=== PATIENT | female | born 1980 | race Caucasian/White ===

== ENCOUNTER 2016-07-16 02:20 | Outpatient (CLI) | payer OTHER ==
[2016-07-16 02:42] LABS: Appearance,Urine Cloudy (Clear); Bacteria,Urine Rare /hpf; Bilirubin,Urine Negative (Negative); Glucose,Urine (UA) 1+ (Negative); Ketones,Urine Negative (Negative); Leukocyte Esterase,Urine Small (Negative); Mucus,Urine Rare /hpf; Nitrite,Urine Negative (Negative); Particle Count 5901; Protein,Urine Trace (Negative); RBC,Urine 3 /hpf (0-5); Specific Gravity,Urine 1.018 (1.001-1.035); Squamous Epithelial Cell,Urine 9 /hpf (0-4); UA Billing (MACRO vs. MICRO) MICRO; Urobilinogen,Urine <2.0 mg/dL (<2.0); WBC,Urine 4 /hpf (0-5)
== END 2016-07-16 03:00 | disposition home or self-care (01) ==
LOC: FBPOP 02:20
PROVIDERS: ATTEND Obstetrics & Gynecology
DX: O99.89 Other specified diseases and conditions complicating pregnancy, childbirth and the puerperium (principal); R10.12 Left upper quadrant pain; G90.1 Familial dysautonomia [Riley-Day]; Z3A.28 28 weeks gestation of pregnancy
CPT/HCPCS: 59025; 81001; 99213

== ENCOUNTER 2016-08-19 20:15 | Outpatient (CLI) | payer OTHER ==
[2016-08-19] MEDS ORDERED: NA PHOS,M-B/NA PHOS,DI-BA 133 ML ENEMA RECTAL STA (21:20)
== END 2016-08-19 23:00 | disposition home or self-care (01) ==
LOC: FBPOP 20:15
PROVIDERS: ATTEND Obstetrics & Gynecology
DX: O99.89 Other specified diseases and conditions complicating pregnancy, childbirth and the puerperium (principal); K59.00 Constipation, unspecified; R10.9 Unspecified abdominal pain; Z3A.31 31 weeks gestation of pregnancy
CPT/HCPCS: 59025; 84112; 99213

== ENCOUNTER 2016-10-07 11:37 | Inpatient (IN) | payer OTHER ==
[2016-10-14] MEDS ORDERED: DINOPROSTONE 10 MG INSERT.ER VAGINAL ONE (19:31)
[2016-10-14] MEDS ORDERED: LACTATED RINGERS 1,000 ML IV SCH (19:45)
[2016-10-14 19:47] VITALS: BMI 37.2
[2016-10-14] MEDS ORDERED: BUTORPHANOL 1 MG/ML 1 ML VIAL IV PRN (20:23)
--- NOTE | 2016-10-14 20:31 | P.HPOB ---
History of Present Illness H&P Date: 10/14/16 Chief Complaint: 41-0/7, Cervidil induction The patient is a 36-year-old 2 para 0010 admitted at 41-0/7 weeks as established by a 5 week ultrasound. She is admitted for induction of labor secondary to post dates with an unfavorable cervix. As result, we discussed cervical ripening with subsequent induction. She does carry the diagnosis of advanced maternal age and underwent serum chromosomal testing which was negative. She also carries a diagnosis of dysautonomia and underwent maternal medicine consultation as well as anesthesia consultation. Maternal medicine suggested early epidural with careful management of blood pressures and to allow the patient to labor down but still to continue to seek normal vaginal delivery. Anesthesia is aware of her condition and reportedly has a plan in place. On admission, all signs are reassuring. Group B strep status is negative. Obstetrical history: 2 para 0010 with one early miscarriage not requiring D&C. Current statistics are listed above. EDC of 2016 was established by a 5 week ultrasound. Laboratory workup demonstrates a blood type of AB+ with a negative antibody screen. Rubella status is immune. All other laboratory workup was within normal limits. chromosomal testing was negative. Cystic fibrosis screening was negative. Second trimester Glucola was within normal limits and group B strep status is negative. Gynecologic history: Is unremarkable though the patient is serial positive for herpes simplex with no reported outbreaks historically. There are no signs or symptoms of outbreak at this time. Review of Systems Review of systems is confined to history of present illness. Past Medical History Past Medical History: Blood Disorder Additional Past Medical History / Comment(s): dysautomonia. clotting disorder History of Any Multi-Drug Resistant Organisms: None Reported Past Surgical History: Adenoidectomy, Cholecystectomy Additional Past Surgical History / Comment(s): plastic surgery for excess skin removal. D&C. [place] teeth Additional Past Anesthesia/Blood Transfusion Reaction / Comment(s): Difficult time stablizing blood pressure after anesthesia and extreme nausea. Past Psychological History: Anxiety Smoking Status: Never smoker Past Alcohol Use History: None Reported Past Drug Use History: None Reported - Past Family History Mother Family Medical History: Blood Disorder Additional Family Medical History / Comment(s): Mother has clotting problems. Pt states mother has to be on blood thinners. Medications and Allergies Home Medications Medication Instructions Recorded Confirmed Type Ani-Wiqn-Ynzsa Acid 1 tab PO DAILY 07/16/16 10/14/16 History [-U Capsule (formulary)] Allergies Allergy/AdvReac Type Severity Reaction Status Date / Time cefaclor [From [facility]] Allergy Anaphylaxis Verified 10/14/16 19:23 Penicillins Allergy Anaphylaxis Verified 10/14/16 19:23 sulfamethoxazole Allergy Anaphylaxis Verified 10/14/16 19:23 [From Septra] trimethoprim [From Septra] Allergy Anaphylaxis Verified 10/14/16 19:23 Exam - Vital Signs Vital signs: Vital Signs Temp Pulse Resp BP Pulse Ox 10/14/16 19:34 97.3 F L 81 17 135/80 96 Intake and Output 10/14/16 10/14/16 10/14/16 06:59 14:59 22:59 Other: Weight 111.13 kg Patient Weight 10/15/16 06:59 Weight 111.13 kg In general, this is a well-developed, mildly obese white female in no acute distress. Her heart has a regular rhythm and rate without murmur. Her lungs are clear to auscultation bilaterally in all rodriguez. Her abdomen is nondistended, has normal active bowel sounds, is soft, nontender, and without any palpable masses aside from uterine fundus. She does have abdominal scarring from previous abdominoplasty. Her extremities are without any cyanosis , clubbing, or significant edema and are nontender to palpation bilaterally. Digital cervical examination at this time demonstrates her cervix to be fingertip dilated, 80% effaced, the vertex in presentation at -2 station. Cervidil is placed in the posterior fornix per protocol. Assessment and Plan (1) Dysautonomia Status: Acute (2) Post-dates Status: Acute Plan: The patient has been admitted for cervical ripening with Cervidil. We have had multiple discussions regarding potential outcomes and our intention is to place an epidural early in the process when pain begins. Should labor ensue, she will undergo artificial rupture of membranes at the earliest convenient time. Close maternal and surveillance will continue to be practiced along with careful monitoring of her blood pressures. Anesthesia has been notified of the patient's arrival on the floor and will interview the patient shortly. We will continue with expectant management at this time.
[2016-10-14 21:05] LABS: Basophils % (A) 0 %; CH 29.7; CHCM 33.4; Eosinophils # (A) 0.1 k/uL (0-0.7); Eosinophils % (A) 1 %; HCT 37.7 % (34.0-46.0); HDW 2.72; Luc # (Auto) 0.16; Luc % (Auto) 1; Lymphocytes # (A) 1.6 k/uL (1.0-4.8); Lymphocytes % (A) 14 %; MCH 30.7 pg (25.0-35.0); MCHC 34.4 g/dL (31.0-37.0); MCV 89.4 fL (80.0-100.0); Mean Platelet Volume 7.8; Monocytes # (A) 0.4 k/uL (0-1.0); Monocytes % (A) 4 %; Neutrophils # (A) 9.4 k/uL (1.3-7.7); Neutrophils % (A) 80 %; RBC 4.22 m/uL (3.80-5.40); RDW 14.5 % (11.5-15.5); WBC 11.8 k/uL (3.8-10.6); WBC (Perox) 12.17
[2016-10-14 21:48] LABS: INR 0.9 (<1.1); Prothrombin Time 9.3 sec (9.0-12.0)
--- NOTE | 2016-10-14 21:49 | P.CON ---
Consult Note - . Assessment/Plan:: This is a 36-year-old lady 2 para 0010, 41-1/2 weeks' ( postdated) admitted for induction of labor. Her medical list history is noted for a blood disorder- clotting disorder which she cannot give any further details of. She also has autonomic dysfunction disorder. The anesthesia was consulted for the early institution of epidural analgesia and peripartum pain management. The options for the pain management were discussed in detail with the patient. We will do the clotting and coagulation workup. If everything is normal, whenever she needs we will do a continuous lumbar epidural analgesia for labor management. The chances of having an exaggerated autonomic side effects due to epidural infusion were discussed. She might have hypotension, dizziness or nausea. We will be prepared to treat any of the side effects. For any reason if it is deemed necessary, we might have to stop the epidural infusion. The risk of having an epidural and its associated exaggerated autonomic side effects versus the benefit of having a good pain relief (as pain itself triggers her dysautonomia) were discussed. Other risks inherent with epidural placement like itching, headache and remote chance of nerve damage were discussed. She agrees to go ahead with the epidural analgesia.
[2016-10-14 22:10] LABS: Partial Thromboplastin Time 21.1 sec (22.0-30.0)
[2016-10-15] MEDS ORDERED: METHYLERGONOVINE 0.2 MG/ML 1 ML AMP IM PRN (10:32)
[2016-10-15] MEDS ORDERED: TERBUTALINE 1 MG/ML VIAL SQ PRN (10:32)
[2016-10-15] MEDS ORDERED: CARBOPROST TROMETHAMINE 250 MCG/ML 1 ML AMP IM PRN (10:32)
[2016-10-15] MEDS ORDERED: OXYTOCIN 10 UNIT/ML 1 ML VIAL IM PRN (10:32)
[2016-10-15] MEDS ORDERED: LIDOCAINE 1% (PF) 10 MG/ML (30 ML SDV) SQ PRN (10:32)
[2016-10-15] MEDS: LACTATED RINGERS 1,000 ML IV SCH ×2 (10:44→11:18)
[2016-10-15] MEDS ORDERED: OXYTOCIN 30 UNITS/500 ML NS 30 UNIT in SALINE 1 500ML.BAG IV SCH (10:45)
[2016-10-15] MEDS ORDERED: BUPIVACAINE (PF) 0.25% 25 ML, fentaNYL (PF) 200 MCG in SODIUM CHLORIDE 0.9% 71 ML EPIDURAL ONE (11:09)
[2016-10-15] MEDS ORDERED: BUPIVACAINE (PF) 0.25% 30 ML VIAL ONE (11:10)
[2016-10-15] MEDS ORDERED: fentaNYL (PF) 50 MCG/ML 5 ML AMP ONE (11:10)
[2016-10-15] MEDS ORDERED: SODIUM CHLORIDE 0.9% 100 ML BAG ONE (11:10)
[2016-10-15] MEDS ORDERED: SIMETHICONE 80 MG CHEWABLE PO PRN (18:07)
[2016-10-15] MEDS ORDERED: diphenhydrAMINE 50 MG/ML 1 ML VIAL IVP PRN ×2 (18:07)
[2016-10-15] MEDS ORDERED: diphenhydrAMINE 50 MG CAP PO PRN (18:07)
[2016-10-15] MEDS ORDERED: ACETAMINOPHEN TAB 325 MG TAB PO PRN (18:07)
[2016-10-15] MEDS ORDERED: WITCH HAZEL 1 EACH MED..PAD TOPICAL PRN (18:07)
[2016-10-15] MEDS ORDERED: diphenhydrAMINE 25 MG CAP PO PRN (18:07)
[2016-10-15] MEDS ORDERED: LANOLIN CREAM 5 GM TUBE TOPICAL PRN (18:07)
[2016-10-15] MEDS ORDERED: ZOLPIDEM 5 MG TAB PO PRN (18:07)
[2016-10-15] MEDS ORDERED: HYDROCORTISONE 2.5% RECTAL CREAM 30 GM TUBE RECTAL PRN (18:07)
[2016-10-15] MEDS ORDERED: BENZOCAINE/MENTHOL SPRAY 1 GM/SPRAY AEROSOL TOPICAL PRN (18:07)
[2016-10-15] MEDS ORDERED: Acetaminophen-Codeine 300-30mg TAB PO PRN ×2 (18:07)
--- NOTE | 2016-10-15 18:14 | P.PROBDLV ---
Vaginal Delivery Note - . Vaginal Delivery Note: The patient is a 36-year-old 2 para 0010 admitted at 41-0/7 weeks by good dating parameters. She is admitted with an unfavorable cervix for postdates induction of labor. Her last evening, she had Cervidil placed in the posterior fornix per protocol at which time her cervix was fingertip, 80%, with the vertex in presentation at -2 station. All signs were reassuring. Her had been essentially uncomplicated though she carries a diagnosis of dysautonomia and underwent both maternal medicine consultation as well as anesthesia consultation in advance of labor. Overnight she made cervical change and was found to be 1+ centimeters dilated, 80% effaced, the vertex in presentation at -2 station this morning at which time artificial rupture of membranes was carried out entered and clear fluid. She made progress through the latent phase of labor and had an epidural catheter placed for analgesia which relieved some but not all of her discomfort. Once she entered the active phase of labor, she made rapid progress to complete and 0 station. She pushed over the course of approximately 10-15 minutes to a normal spontaneous vaginal delivery of a viable 7 lbs. 8 oz. baby boy with Apgars of 8 at 1 minute and 9 at 5 minutes delivered in the right occiput anterior position. She had requested cord blood collection was was carried out under aseptic conditions per the instructions included in the packaging. Once all cord blood had been collected the kit was closed and set aside per the instructions. The placenta was delivered spontaneously, intact, and grossly normal although there was a possible infarct in the central portion of the placenta. There was a grossly normal three-vessel cord inserted approximate 2 cm from the margin of the placental disc. Examination of the perineum demonstrated a complete third- degree laceration with no entry into the rectum or at the anal verge. The margins/capsule of the external anal sphincter were identified and closed on 4 sides with a [id number] stitch of 2-0 Vicryl in standard fashion. The remainder of the second-degree laceration was closed in standard fashion using 3 -0 chromic catgut without difficulty. All this was carried out under 1% lidocaine local block. Following closure, a finger was placed in the rectum and demonstrated no stitches through the rectal mucosa and that the external anal sphincter was felt to be rebuilt entirely. Estimated blood loss for the case was approximately 250 mL. The only complication was the third-degree laceration. All sponge, instrument, and needle counts were correct. Both mother and infant are resting comfortably in recovery.
[2016-10-15] MEDS: IBUPROFEN 600 MG TAB PO PRN (19:08)
[2016-10-16] MEDS: IBUPROFEN 600 MG TAB PO PRN ×3 (04:30→22:15)
[2016-10-16] MEDS: SENNOSIDES-DOCUSATE SODIUM 1 EACH TAB PO SCH ×2 (08:12→22:16)
--- NOTE | 2016-10-16 08:59 | P.DS ---
Providers Date of admission: 10/14/16 19:03 Expected date of discharge: 10/16/16 Attending physician: Dylan Meza Primary care physician: Mazin Lerma - Discharge Diagnosis(es) (1) Dysautonomia Current Visit: Yes Status: Acute (2) Post-dates Current Visit: Yes Status: Acute (3) Normal spontaneous vaginal delivery Current Visit: Yes Status: Acute Hospital Course: The patient is a 36-year-old 2 para 0010 admitted at 41-0/7 weeks for Cervidil cervical ripening followed by induction. She carries a diagnosis of dysautonomia and had a anesthesia consult as well as maternal medicine consultation and advance of labor. Her was essentially otherwise uncomplicated. She did fall into the category of advanced maternal age and had chromosomal screening which was negative. On labor and delivery, she had Cervidil placed and made cervical change overnight allowing artificial rupture of membranes early in the morning. She had an epidural catheter placed during the latent phase of labor and progressed relatively slowly but steadily through the latent phase. She made very rapid progress to the active phase of labor to complete and then pushed to a normal spontaneous vaginal delivery of a viable 7 lbs. 8 oz. baby boy with Apgars of 8 at 1 minute and 9 at 5 minutes. She was found with a third-degree laceration following delivery which was repaired in standard fashion. There were no concerns with her blood pressures during the labor course or otherwise. She was deemed stable for discharge by post day #1 and was discharged home to follow-up in the office in 6 weeks' time routinely. Discharge instructions included calling for any significantly increased bleeding or foul-smelling lochia, significantly increased fever or abdominal pain, perineal complaints, breast complaints, or anything else that concerned her. She is additionally instructed to have nothing in the vagina for at least 6 weeks time to include intercourse and to abstain from any heavy lifting over the same period of time. She understood her instructions and agrees to follow up as noted above. Discharge medications included a prescription for Tylenol No. 3, 1-2 by mouth every 6 hours when necessary pain, #20 dispensed with no refills. She additionally was to continued use vitamins as she has opted to breast-feed. Additionally she will use over-the- counter analgesic pain medications as needed. Maternal blood type is AB+ and rubella status is immune. She was lastly also instructed to use stool softeners to stay as regular as possible given her third-degree laceration. Procedures: #1. Cervidil cervical ripening #2. Pitocin augmentation #3. Epidural analgesia #4. Artificial rupture of membranes #5. Normal spontaneous vaginal delivery #6. Repair of third-degree perineal laceration Patient Condition at Discharge: Good Plan - Discharge Summary Discharge Medication List Ydo-Evsi-Kwvih Acid [-U Capsule (formulary)] 1 tab PO DAILY 04/22 [History] Follow up Appointment(s)/Referral(s): Dylan Meza MD [STAFF PHYSICIAN] - 6 Weeks Discharge Disposition: HOME SELF-CARE
[2016-10-17] MEDS: IBUPROFEN 600 MG TAB PO PRN (06:33)
[2016-10-17] MEDS: SENNOSIDES-DOCUSATE SODIUM 1 EACH TAB PO SCH (08:25)
[2016-10-17 08:47] VITALS: BP 124/80; PULSE 80; RESP 20; TEMP 98.4
== END 2016-10-17 12:15 | disposition home or self-care (01) | DRG 775 ==
LOC: 4FBP 10-14 19:03
PROVIDERS: ADMIT Obstetrics & Gynecology; ATTEND Obstetrics & Gynecology
PROC: 3E0R3CZ (ICD-10-PCS; principal; 2016-10-14)
PROC: 3E0P7GC Introduction of Other Therapeutic Substance into Female Reproductive, Via Natural or Artificial Opening (ICD-10-PCS; principal; 2016-10-14)
PROC: 00HU33Z Insertion of Infusion Device into Spinal Canal, Percutaneous Approach (ICD-10-PCS; principal; 2016-10-14)
PROC: 3E033VJ Introduction of Other Hormone into Peripheral Vein, Percutaneous Approach (ICD-10-PCS; principal; 2016-10-14)
PROC: 10907ZC Drainage of Amniotic Fluid, Therapeutic from Products of Conception, Via Natural or Artificial Opening (ICD-10-PCS; principal; 2016-10-14)
PROC: 10E0XZZ Delivery of Products of Conception, External Approach (ICD-10-PCS; 2016-10-15)
PROC: 0DQR0ZZ Repair Anal Sphincter, Open Approach (ICD-10-PCS; 2016-10-15)
DX: O48.0 Post-term pregnancy (principal); O99.354 Diseases of the nervous system complicating childbirth; O70.20 Third degree perineal laceration during delivery, unspecified; Z37.0 Single live birth; O09.523 Supervision of elderly multigravida, third trimester; G90.1 Familial dysautonomia [Riley-Day]; Z3A.41 41 weeks gestation of pregnancy
CPT/HCPCS: 85025; 85610; 85730; 88307

== ENCOUNTER 2017-04-28 20:25 | Emergency (ER) | payer OTHER ==
--- NOTE | 2017-04-28 21:17 | ED ---
General Adult HPI - General Chief complaint: Chest Pain Stated complaint: Chest Pain Time Seen by Provider: 04/28/17 20:43 Source: patient, RN notes reviewed Mode of arrival: wheelchair Limitations: no limitations - History of Present Illness Initial comments: 36-year-old female presents for evaluation of right sided chest pain. Patient' s pain is dull in nature, began approximately one hour prior to arrival. Patient states she does have pain in her right shoulder. Denies any injury. Denies fever or cough. Denies any left-sided or central chest pain or pressure. No cardiac history. No gallop, no nausea vomiting. Patient has had her gallbladder removed. Pain is improving without treatment. - Related Data Home Medications Medication Instructions Recorded Confirmed Juleber 1 tab PO DAILY 04/28/17 04/28/17 Allergies Allergy/AdvReac Type Severity Reaction Status Date / Time cefaclor [From Ceclor] Allergy Anaphylaxis Verified 04/28/17 21:37 Penicillins Allergy Anaphylaxis Verified 04/28/17 21:37 sulfamethoxazole Allergy Anaphylaxis Verified 04/28/17 21:37 [From Septra] trimethoprim [From Septra] Allergy Anaphylaxis Verified 04/28/17 21:37 Review of Systems ROS Statement: Those systems with pertinent positive or pertinent negative responses have been documented in the HPI. ROS Other: All systems not noted in ROS Statement are negative. Past Medical History Past Medical History: Blood Disorder Additional Past Medical History / Comment(s): dysautomonia. clotting disorder. History of Any Multi-Drug Resistant Organisms: None Reported Past Surgical History: Adenoidectomy, Cholecystectomy Additional Past Surgical History / Comment(s): plastic surgery for excess skin removal. D&C. [place] teeth Additional Past Anesthesia/Blood Transfusion Reaction / Comment(s): Difficult time stablizing blood pressure after anesthesia and extreme nausea. Past Psychological History: Anxiety Smoking Status: Never smoker Past Alcohol Use History: None Reported Past Drug Use History: None Reported - Past Family History Mother Family Medical History: Blood Disorder Additional Family Medical History / Comment(s): Mother has clotting problems. Pt states mother has to be on blood thinners. General Exam Limitations: no limitations General appearance: alert, in no apparent distress Head exam: Present: atraumatic, normocephalic Eye exam: Present: normal appearance, PERRL ENT exam: Present: normal exam Neck exam: Present: normal inspection. Absent: tenderness, meningismus Respiratory exam: Present: normal lung sounds bilaterally. Absent: respiratory distress, wheezes Cardiovascular Exam: Present: regular rate, normal rhythm GI/Abdominal exam: Present: soft. Absent: distended, tenderness Extremities exam: Present: normal inspection, normal capillary refill. Absent: pedal edema, calf tenderness Neurological exam: Present: alert, oriented X3. Absent: motor sensory deficit Psychiatric exam: Present: normal affect, normal mood Skin exam: Present: warm, dry, intact. Absent: cyanosis, diaphoretic Course Vital Signs 04/28/17 04/28/17 04/28/17 20:29 21:24 23:12 Temperature 99.3 F Pulse Rate 79 67 79 Respiratory 16 18 16 Rate Blood Pressure 136/80 134/90 126/74 O2 Sat by Pulse 99 98 96 Oximetry EKG Findings - EKG Comments: EKG Findings:: EKG shows normal sinus rhythm, ventricular rate 70, LA interval 170, QRS duration 82, QTC 442, no ST segment elevation or depression, no T-wave abnormality Medical Decision Making - Medical Decision Making 36-year-old with right-sided superior chest pain. Laboratory studies are unremarkable with the exception of elevated d-dimer. CT angiography is obtained. This is negative for PE. Chest x-ray review shows no focal infiltrate, no pneumothorax. Patient's vital signs are stable. Her pain is improving without treatment. She will follow-up with her primary care physician. - Lab Data Result diagrams: 04/28/17 21:06 04/28/17 21:06 Lab Results 04/28/17 04/28/17 04/28/17 Range/Units 21:06 21:06 21:06 WBC 7.5 (3.8-10.6) k/uL RBC 4.81 (3.80-5.40) m/uL Hgb 14.1 (11.4-16.0) gm/dL Hct 43.8 (34.0-46.0) % MCV 91.0 (80.0-100.0) fL MCH 29.3 (25.0-35.0) pg MCHC 32.2 (31.0-37.0) g/dL RDW 15.2 (11.5-15.5) % Plt Count 279 (150-450) k/uL Neutrophils % 58 % Lymphocytes % 31 % Monocytes % 6 % Eosinophils % 3 % Basophils % 1 % Neutrophils # 4.3 (1.3-7.7) k/uL Lymphocytes # 2.4 (1.0-4.8) k/uL Monocytes # 0.4 (0-1.0) k/uL Eosinophils # 0.2 (0-0.7) k/uL Basophils # 0.1 (0-0.2) k/uL PT (9.0-12.0) sec INR (<1.2) APTT (22.0-30.0) sec D-Dimer (<0.60) mg/L FEU Sodium 139 (137-145) mmol/L Potassium 4.3 (3.5-5.1) mmol/L Chloride 105 (98-107) mmol/L Carbon Dioxide 24 (22-30) mmol/L Anion Gap 10 mmol/L BUN 13 (7-17) mg/dL Creatinine 0.70 (0.52-1.04) mg/dL Est GFR (MDRD) Af Amer >60 (>60 ml/min/1.73 sqM) Est GFR (MDRD) Non-Af >60 (>60 ml/min/1.73 sqM) Glucose 76 (74-99) mg/dL Calcium 9.7 (8.4-10.2) mg/dL Magnesium 2.2 (1.6-2.3) mg/dL Total Bilirubin 0.3 (0.2-1.3) mg/dL AST 22 (14-36) U/L ALT 27 (9-52) U/L Alkaline Phosphatase 74 (38-126) U/L Total Creatine Kinase 61 (30-135) U/L CK-MB (CK-2) 0.4 (0.0-2.4) ng/mL CK-MB (CK-2) Rel Index 0.7 Troponin I <0.012 (0.000-0.034) ng/mL Total Protein 7.6 (6.3-8.2) g/dL Albumin 4.4 (3.5-5.0) g/dL Lipase (23-300) U/L 04/28/17 04/28/17 04/28/17 Range/Units 21:06 21:06 21:06 WBC (3.8-10.6) k/uL RBC (3.80-5.40) m/uL Hgb (11.4-16.0) gm/dL Hct (34.0-46.0) % MCV (80.0-100.0) fL MCH (25.0-35.0) pg MCHC (31.0-37.0) g/dL RDW (11.5-15.5) % Plt Count (150-450) k/uL Neutrophils % % Lymphocytes % % Monocytes % % Eosinophils % % Basophils % % Neutrophils # (1.3-7.7) k/uL Lymphocytes # (1.0-4.8) k/uL Monocytes # (0-1.0) k/uL Eosinophils # (0-0.7) k/uL Basophils # (0-0.2) k/uL PT 9.6 (9.0-12.0) sec INR 0.9 (<1.2) APTT 22.1 (22.0-30.0) sec D-Dimer 0.88 H (<0.60) mg/L FEU Sodium (137-145) mmol/L Potassium (3.5-5.1) mmol/L Chloride (98-107) mmol/L Carbon Dioxide (22-30) mmol/L Anion Gap mmol/L BUN (7-17) mg/dL Creatinine (0.52-1.04) mg/dL Est GFR (MDRD) Af Amer (>60 ml/min/1.73 sqM) Est GFR (MDRD) Non-Af (>60 ml/min/1.73 sqM) Glucose (74-99) mg/dL Calcium (8.4-10.2) mg/dL Magnesium (1.6-2.3) mg/dL Total Bilirubin (0.2-1.3) mg/dL AST (14-36) U/L ALT (9-52) U/L Alkaline Phosphatase (38-126) U/L Total Creatine Kinase (30-135) U/L CK-MB (CK-2) (0.0-2.4) ng/mL CK-MB (CK-2) Rel Index Troponin I (0.000-0.034) ng/mL Total Protein (6.3-8.2) g/dL Albumin (3.5-5.0) g/dL Lipase 207 (23-300) U/L Disposition Clinical Impression: Chest pain Disposition: HOME SELF-CARE Condition: Good Instructions: Chest Pain (ED) Referrals: Mazin Lerma DO [Primary Care Provider] - 1-2 days Time of Disposition: 00:08
[2017-04-28 21:23] LABS: Basophils # (A) 0.1 k/uL (0-0.2); Basophils % (A) 1 %; CH 30.6; CHCM 33.8; Eosinophils # (A) 0.2 k/uL (0-0.7); Eosinophils % (A) 3 %; HCT 43.8 % (34.0-46.0); HDW 2.41; HGB 14.1 gm/dL (11.4-16.0); Luc # (Auto) 0.12; Luc % (Auto) 2; Lymphocytes # (A) 2.4 k/uL (1.0-4.8); Lymphocytes % (A) 31 %; MCH 29.3 pg (25.0-35.0); MCHC 32.2 g/dL (31.0-37.0); Mean Platelet Volume 7.6; Monocytes # (A) 0.4 k/uL (0-1.0); Monocytes % (A) 6 %; Neutrophils # (A) 4.3 k/uL (1.3-7.7); Neutrophils % (A) 58 %; RBC 4.81 m/uL (3.80-5.40); RDW 15.2 % (11.5-15.5); WBC 7.5 k/uL (3.8-10.6); WBC (Perox) 7.61
[2017-04-28 21:43] LABS: ALT 27 U/L (9-52); AST 22 U/L (14-36); Alkaline Phosphatase 74 U/L (38-126); Anion Gap 10 mmol/L; Blood Urea Nitrogen 13 mg/dL (7-17); Calcium 9.7 mg/dL (8.4-10.2); Carbon Dioxide 24 mmol/L (22-30); Chloride 105 mmol/L (98-107); Glucose 76 mg/dL (74-99); Magnesium 2.2 mg/dL (1.6-2.3); Non-African American GFR(MDRD) >60 (>60 ml/min/1.73 sqM); Potassium 4.3 mmol/L (3.5-5.1); Sodium 139 mmol/L (137-145); Total Bilirubin 0.3 mg/dL (0.2-1.3); Total Protein 7.6 g/dL (6.3-8.2)
[2017-04-28 21:47] LABS: INR 0.9 (<1.2); Partial Thromboplastin Time 22.1 sec (22.0-30.0); Prothrombin Time 9.6 sec (9.0-12.0)
--- NOTE | 2017-04-28 21:53 | XR ---
EXAMINATION TYPE: XR chest 2V DATE OF EXAM: 04/28/2017 COMPARISON: 04/16/2015 HISTORY: Chest pain TECHNIQUE: Frontal and lateral views of the chest are obtained. FINDINGS: Heart and mediastinum are normal. Lungs are clear. Diaphragm is normal. Bony thorax is int act. IMPRESSION: Normal chest. No change.
[2017-04-28 21:58] LABS: Creatine Kinase 61 U/L (30-135)
[2017-04-28 22:11] LABS: Creatine Kinase MB 0.4 ng/mL (0.0-2.4); Troponin I <0.012 ng/mL (0.000-0.034)
[2017-04-28] MEDS ORDERED: RX INFO: IV CONTRAST WAS GIVEN 1 EACH MISC MISCELLANE PRN (22:49)
[2017-04-28 23:13] VITALS: RESP 16
--- NOTE | 2017-04-28 23:57 | CT ---
EXAMINATION TYPE: CT angio chest DATE OF EXAM: 04/28/2017 11:44 PM COMPARISON: NONE HISTORY: No prior, chest pain, hx dysautonomia, elevated d-dimer, R/O PE, not CT DLP: DLP 572.30 mGycm Automated exposure control for dose reduction was used. CONTRAST: CTA scan of the thorax is performed with IV Contrast, patient injected with 83ml mL of Omnipaque 350, pulmonary embolism protocol. There are 3-D post processed images.. FINDINGS: The lungs are clear of infiltrate. There is no evidence of a pulmonary mass. Thoracic aorta appears normal. There is no sign of aneurysm or dissection. There is no mediastinal ad enopathy. There are no hilar masses. I see no filling defects in the pulmonary arteries. There is no pleural effusion. The bony thorax appears intact. IMPRESSION: NORMAL CT ANGIOGRAM OF THE CHEST. NO EVIDENCE OF PULMONARY EMBOLISM.
[2017-04-29 00:18] VITALS: BP 135/79; PULSE 75; TEMP 98.7
== END 2017-04-29 00:25 | disposition home or self-care (01) ==
LOC: EC 20:25
DX: R07.9 Chest pain, unspecified (principal); M25.511 Pain in right shoulder; Z79.3 Long term (current) use of hormonal contraceptives; Z88.0 Allergy status to penicillin; Z88.1 Allergy status to other antibiotic agents; Z88.8 Allergy status to other drugs, medicaments and biological substances
CPT/HCPCS: 36415; 93005; 85379; 80053; 82550; 82553; 83690; 83735; 84484; 85025; 85610; 85730; 71020; 71275; 99285; Q9967

== ENCOUNTER 2017-10-14 01:23 | Emergency (ER) | payer OTHER ==
[2017-10-14] MEDS ORDERED: RX INFO: IV CONTRAST WAS GIVEN 1 EACH MISC MISCELLANE PRN (02:22)
--- NOTE | 2017-10-14 02:26 | ED ---
General Adult HPI - General Chief complaint: Abdominal Pain Stated complaint: Abdominal Pain Time Seen by Provider: 10/14/17 02:01 Source: patient, RN notes reviewed Mode of arrival: ambulatory Limitations: no limitations - History of Present Illness Initial comments: Patient is a pleasant 37-year-old female presenting to the emergency Department with complaints of abdominal discomfort. 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 Symptoms seemed to improve. Symptoms worsened tonight prior to arrival. Symptoms were become severe. Discomfort is lower abdomen were patient did have previous weight loss surgery. No fever. Patient had some nausea. No vomiting. No constipation or diarrhea. No rash. Last menses was 1 week ago. Patient denies . No vaginal discharge. - Related Data Home Medications Medication Instructions Recorded Confirmed Oneileber 1 tab PO DAILY 04/28/17 04/28/17 Allergies Allergy/AdvReac Type Severity Reaction Status Date / Time cefaclor [From Ceclor] Allergy Anaphylaxis Verified 10/14/17 01:35 Penicillins Allergy Anaphylaxis Verified 10/14/17 01:35 sulfamethoxazole Allergy Anaphylaxis Verified 10/14/17 01:35 [From Septra] trimethoprim [From Septra] Allergy Anaphylaxis Verified 10/14/17 01:35 Review of Systems ROS Statement: Those systems with pertinent positive or pertinent negative responses have been documented in the HPI. ROS Other: All systems not noted in ROS Statement are negative. Constitutional: Denies: fever Eyes: Denies: eye pain ENT: Denies: ear pain Respiratory: Denies: cough Cardiovascular: Denies: chest pain Endocrine: Denies: fatigue Gastrointestinal: Reports: abdominal pain, nausea. Denies: vomiting, diarrhea, constipation Genitourinary: Denies: dysuria, discharge Musculoskeletal: Denies: back pain Skin: Denies: rash Neurological: Denies: weakness Past Medical History Past Medical History: Blood Disorder Additional Past Medical History / Comment(s): dysautomonia. clotting disorder. History of Any Multi-Drug Resistant Organisms: None Reported Past Surgical History: Adenoidectomy, Cholecystectomy Additional Past Surgical History / Comment(s): plastic surgery for excess skin removal. D&C. [place] teeth Additional Past Anesthesia/Blood Transfusion Reaction / Comment(s): Difficult time stablizing blood pressure after anesthesia and extreme nausea. Past Psychological History: Anxiety Smoking Status: Never smoker Past Alcohol Use History: None Reported Past Drug Use History: None Reported - Past Family History Mother Family Medical History: Blood Disorder Additional Family Medical History / Comment(s): Mother has clotting problems. Pt states mother has to be on blood thinners. General Exam Limitations: no limitations General appearance: alert, in no apparent distress Head exam: Present: atraumatic Eye exam: Present: normal appearance, PERRL ENT exam: Present: normal oropharynx Neck exam: Present: normal inspection Respiratory exam: Present: normal lung sounds bilaterally Cardiovascular Exam: Present: regular rate, normal rhythm Expanded Peripheral pulses: 2+: Dorsalis Pedis (R), Dorsalis Pedis (L) GI/Abdominal exam: Present: soft, tenderness (Patient has mild superficial tenderness in the periumbilical region where she has a small left reducible hernia.), normal bowel sounds, other (No inguinal hernia. No tenderness in the area of complaint.). Absent: distended, guarding, rebound, rigid, pulsatile mass Extremities exam: Present: normal inspection Neurological exam: Present: alert Psychiatric exam: Present: normal affect, normal mood Skin exam: Present: normal color Course Vital Signs 10/14/17 01:31 Temperature 97.6 F Pulse Rate 71 Respiratory 16 Rate Blood Pressure 145/89 O2 Sat by Pulse 99 Oximetry Medical Decision Making - Medical Decision Making Patient reevaluated and resting comfortably in bed. Patient is offered pelvic exam however she does not feel that is necessary. Patient updated on results and need for follow-up. - Lab Data Result diagrams: 10/14/17 02:27 10/14/17 02:27 Lab Results 10/14/17 10/14/17 10/14/17 Range/Units 02:27 02:27 02:27 WBC 7.8 (3.8-10.6) k/uL RBC 4.41 (3.80-5.40) m/uL Hgb 12.8 (11.4-16.0) gm/dL Hct 38.2 (34.0-46.0) % MCV 86.7 (80.0-100.0) fL MCH 29.0 (25.0-35.0) pg MCHC 33.4 (31.0-37.0) g/dL RDW 14.0 (11.5-15.5) % Plt Count 251 (150-450) k/uL Neutrophils % 59 % Lymphocytes % 30 % Monocytes % 4 % Eosinophils % 5 % Basophils % 1 % Neutrophils # 4.6 (1.3-7.7) k/uL Lymphocytes # 2.3 (1.0-4.8) k/uL Monocytes # 0.3 (0-1.0) k/uL Eosinophils # 0.4 (0-0.7) k/uL Basophils # 0.0 (0-0.2) k/uL PT (9.0-12.0) sec INR (<1.2) APTT (22.0-30.0) sec Sodium 140 (137-145) mmol/L Potassium 4.1 (3.5-5.1) mmol/L Chloride 105 (98-107) mmol/L Carbon Dioxide 24 (22-30) mmol/L Anion Gap 11 mmol/L BUN 13 (7-17) mg/dL Creatinine 0.70 (0.52-1.04) mg/dL Est GFR (CKD-EPI)AfAm >90 (>60 ml/min/1.73 sqM) Est GFR (CKD-EPI)NonAf >90 (>60 ml/min/1.73 sqM) Glucose 100 H (74-99) mg/dL Calcium 9.8 (8.4-10.2) mg/dL Total Bilirubin 0.1 L (0.2-1.3) mg/dL AST 27 (14-36) U/L ALT 38 (9-52) U/L Alkaline Phosphatase 76 (38-126) U/L Total Protein 6.7 (6.3-8.2) g/dL Albumin 3.8 (3.5-5.0) g/dL Amylase 58 (30-110) U/L Lipase 185 (23-300) U/L Urine Color Urine Appearance (Clear) Urine pH (5.0-8.0) Ur Specific [place] (1.001-1.035) Urine Protein (Negative) Urine Glucose (UA) (Negative) Urine Ketones (Negative) Urine Blood (Negative) Urine Nitrite (Negative) Urine Bilirubin (Negative) Urine Urobilinogen (<2.0) mg/dL Ur Leukocyte Esterase (Negative) Urine HCG, Qual Not Detected (Not Detectd) 10/14/17 10/14/17 Range/Units 02:27 02:27 WBC (3.8-10.6) k/uL RBC (3.80-5.40) m/uL Hgb (11.4-16.0) gm/dL Hct (34.0-46.0) % MCV (80.0-100.0) fL MCH (25.0-35.0) pg MCHC (31.0-37.0) g/dL RDW (11.5-15.5) % Plt Count (150-450) k/uL Neutrophils % % Lymphocytes % % Monocytes % % Eosinophils % % Basophils % % Neutrophils # (1.3-7.7) k/uL Lymphocytes # (1.0-4.8) k/uL Monocytes # (0-1.0) k/uL Eosinophils # (0-0.7) k/uL Basophils # (0-0.2) k/uL PT 9.3 (9.0-12.0) sec INR 0.9 (<1.2) APTT 21.0 L (22.0-30.0) sec Sodium (137-145) mmol/L Potassium (3.5-5.1) mmol/L Chloride (98-107) mmol/L Carbon Dioxide (22-30) mmol/L Anion Gap mmol/L BUN (7-17) mg/dL Creatinine (0.52-1.04) mg/dL Est GFR (CKD-EPI)AfAm (>60 ml/min/1.73 sqM) Est GFR (CKD-EPI)NonAf (>60 ml/min/1.73 sqM) Glucose (74-99) mg/dL Calcium (8.4-10.2) mg/dL Total Bilirubin (0.2-1.3) mg/dL AST (14-36) U/L ALT (9-52) U/L Alkaline Phosphatase (38-126) U/L Total Protein (6.3-8.2) g/dL Albumin (3.5-5.0) g/dL Amylase (30-110) U/L Lipase (23-300) U/L Urine Color Light Yellow Urine Appearance Clear (Clear) Urine pH 6.5 (5.0-8.0) Ur Specific [place] 1.009 (1.001-1.035) Urine Protein Negative (Negative) Urine Glucose (UA) Negative (Negative) Urine Ketones Negative (Negative) Urine Blood Negative (Negative) Urine Nitrite Negative (Negative) Urine Bilirubin Negative (Negative) Urine Urobilinogen <2.0 (<2.0) mg/dL Ur Leukocyte Esterase Negative (Negative) Urine HCG, Qual (Not Detectd) - Radiology Data Radiology results: report reviewed (Computed tomography scan of the abdomen pelvis shows no acute process.) Disposition Clinical Impression: Abdominal pain Disposition: HOME SELF-CARE Condition: Stable Instructions: Abdominal Pain (ED) Additional Instructions: Please follow-up with primary care physician in the next day or 2 for recheck. Return for increased pain, fever, vomiting, worsening symptoms or other concerns. Referrals: Mazin Lerma DO [Primary Care Provider] - 1-2 days Time of Disposition: 03:56
[2017-10-14 02:50] LABS: Basophils % (A) 1 %; Eosinophils # (A) 0.4 k/uL (0-0.7); Eosinophils % (A) 5 %; HCT 38.2 % (34.0-46.0); HGB 12.8 gm/dL (11.4-16.0); Lymphocytes # (A) 2.3 k/uL (1.0-4.8); Lymphocytes % (A) 30 %; MCHC 33.4 g/dL (31.0-37.0); MCV 86.7 fL (80.0-100.0); Mean Platelet Volume 7.6; Monocytes # (A) 0.3 k/uL (0-1.0); Monocytes % (A) 4 %; Neutrophils # (A) 4.6 k/uL (1.3-7.7); Neutrophils % (A) 59 %; Platelet Count 251 k/uL (150-450); RBC 4.41 m/uL (3.80-5.40); WBC 7.8 k/uL (3.8-10.6)
[2017-10-14 02:59] LABS: ALT 38 U/L (9-52); AST 27 U/L (14-36); Albumin 3.8 g/dL (3.5-5.0); Alkaline Phosphatase 76 U/L (38-126); Amylase 58 U/L (30-110); Anion Gap 11 mmol/L; Blood Urea Nitrogen 13 mg/dL (7-17); Calcium 9.8 mg/dL (8.4-10.2); Carbon Dioxide 24 mmol/L (22-30); Chloride 105 mmol/L (98-107); Glucose 100 mg/dL (74-99); Lipase 185 U/L (23-300); Potassium 4.1 mmol/L (3.5-5.1); Sodium 140 mmol/L (137-145); Total Bilirubin 0.1 mg/dL (0.2-1.3); Total Protein 6.7 g/dL (6.3-8.2)
[2017-10-14 03:02] LABS: Appearance,Urine Clear (Clear); Bilirubin,Urine Negative (Negative); Blood,Urine Negative (Negative); Color,Urine Light Yellow; Glucose,Urine (UA) Negative (Negative); Ketones,Urine Negative (Negative); Leukocyte Esterase,Urine Negative (Negative); Nitrite,Urine Negative (Negative); PH, Urine 6.5 (5.0-8.0); Protein,Urine Negative (Negative); Specific Gravity,Urine 1.009 (1.001-1.035); Urobilinogen,Urine <2.0 mg/dL (<2.0)
[2017-10-14 03:09] LABS: INR 0.9 (<1.2); Prothrombin Time 9.3 sec (9.0-12.0)
--- NOTE | 2017-10-14 03:33 | CT ---
EXAMINATION TYPE: CT abdomen pelvis w con DATE OF EXAM: 10/14/2017 COMPARISON: 04/29/2014 HISTORY: Lower abd pain CT DLP: 2149.80 mGycm Automated exposure control for dose reduction was used. TECHNIQUE: Helical acquisition of images was performed from the lung bases through the pelvis. CONTRAST: Performed without Oral Contrast and with IV Contrast, patient injected with 100 mL of Isovue 300. FINDINGS: Lung bases are clear. There is no pleural effusion. Heart size is normal. Liver spleen pancreas appear normal. There are clips from cholecystectomy. Bile ducts are not dilated . There is no adrenal mass. Kidneys show satisfactory contrast opacification. There is no hydronephrosi s. Ureters are not dilated. There is no retroperitoneal adenopathy. There is no ascites. There is no sign of free air. Bladder di stends smoothly. I see no intestinal wall thickening. There are no dilated loops. Fecal pattern is fa irly normal. Appendix is not definitely seen. There is no sign of appendicitis. I see no bony destructive process. There is narrowing of the L5-S1 disc space. Uterus is retroverted. There is no evidence of a pelvic mass. IMPRESSION: NEGATIVE CT SCAN OF THE ABDOMEN AND PELVIS. 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 NO ADVERSE CHANGE COMPARED TO OLD E XAM.
[2017-10-14 04:05] VITALS: BP 138/74; PULSE 68; RESP 17; TEMP 98.9
== END 2017-10-14 04:04 | disposition home or self-care (01) ==
LOC: EC 01:23
DX: K46.9 Unspecified abdominal hernia without obstruction or gangrene (principal); R11.0 Nausea; R10.33 Periumbilical pain; Z88.0 Allergy status to penicillin; Z88.1 Allergy status to other antibiotic agents; Z79.3 Long term (current) use of hormonal contraceptives; Z90.49 Acquired absence of other specified parts of digestive tract
CPT/HCPCS: 36415; 80053; 82150; 83690; 85025; 85610; 85730; 81003; 81025; 74177; 99284; Q9967